=== PATIENT | female | born 1940 | race Caucasian/White ===

== ENCOUNTER 2016-10-06 06:52 | Inpatient (IN) | payer MEDICARE ==
--- NOTE | 2016-09-29 16:33 | Rehab Joint Replacement Pre-Op ---
Rehab Joint Replacement Pre-Op - Pre-Op Visit Reviewed Items Scheduled for Post Op Visit: No Pre-Op Visit Comment: The patient lives in a home without stairs ( no stairs at enterance). The patient's bathroom has a shower stall with a seat and grab bars. The patient has a walker and a cane. The patient prefers to bring her own walker into the hospital. The patient has had a R TKA in the past. Kalen Hose/Garment Measurement TKR - Knee High: Yes Exercise Reviewed: Yes Stair Climbing: N/A Cane/Walker/Crutch Training: Yes Vend Equipment - Cane or Walker and OT Kit: N/A List of Venders in the Area: N/A Shower Chair Transfers: Yes Car Transfers: Yes Bed Transfers: Yes Medical History Forms Issued: N/A Functional Scale Forms Issued: N/A
[~2016-10-06 06:52] MED LIST: ACETAMINOPHEN 1000MG/100 ML PREMIX IV ONE; CEFAZOLIN 2 Gram 50 ML IVPB ONE; CELECOXIB 100 MG CAPSULE PO ONE; FAMOTIDINE 20MG TABLET PO ONE; MECLIZINE 25 MG TABLET PO ONE; METOCLOPRAMIDE 10 MG TABLET PO ONE
[2016-10-06] MEDS ORDERED: RINGERS SOLUTION,LACTATED 1,000 ML IV PRN (10:45)
[2016-10-06] MEDS ORDERED: TRAMADOL HCL 50 MG TABLET PO PRN ×2 (11:15)
[2016-10-06] MEDS ORDERED: SENNOSIDES/DOCUSATE SODIUM UD CAPSULE PO PRN (11:15)
[2016-10-06] MEDS ORDERED: METOCLOPRAMIDE HCL 10 MG/2 ML VIAL IVP PRN (11:15)
[2016-10-06] MEDS ORDERED: DIPHENHYDRAMINE HCL 25 MG CAPSULE PO PRN (11:15)
[2016-10-06] MEDS ORDERED: AL HYDROX/MAG HYDROX 30ML UD PO PRN (11:15)
[2016-10-06] MEDS ORDERED: MAGNESIUM HYDROXIDE 30 ML UDC PO PRN (11:15)
[2016-10-06] MEDS ORDERED: ONDANSETRON HCL IV 4 MG/2 ML VIAL IVP PRN (11:15)
[2016-10-06] MEDS ORDERED: ZOLPIDEM TARTRATE 5 MG TABLET PO PRN (11:15)
[2016-10-06] MEDS ORDERED: TRANEXAMIC ACID 1,000 MG in 0.9 % SODIUM CHLORIDE 100ML 100 ML IVPB ONE (13:00)
[2016-10-06] MEDS ORDERED: OXYCODONE HCL 5 MG TABLET PO PRN (13:30)
[2016-10-06] MEDS: ACETAMINOPHEN 1,000 MG/ 100 ML IV SCH ×4 (13:50→20:00)
[2016-10-06] MEDS ORDERED: BUPIVACAINE 0.25% W/EPI MPF 30ML VIAL IVP ONE (14:39)
[2016-10-06] MEDS ORDERED: BUPIVACAINE LIPOSOME 266MG/20ML VIAL IV ONE (14:39)
[2016-10-06] MEDS ORDERED: TRANEXAMIC ACID 1,000 MG/10 ML ML IV ONE (14:39)
[2016-10-06] MEDS: OXYCODONE HCL 5 MG TABLET PO PRN ×4 (14:46→23:51)
[2016-10-06] MEDS ORDERED: FENTANYL PF 100MCG/2ML VIAL IV ONE (14:55)
[2016-10-06] MEDS ORDERED: MIDAZOLAM HCL 2MG/2ML VIAL IV ONE (14:55)
[2016-10-06] MEDS ORDERED: PROPOFOL 10 MG/ML VIAL IV ONE (14:55)
[2016-10-06] MEDS ORDERED: LIDOCAINE 2% MDV (20MG/ML) 20ML VIAL IV ONE (14:55)
[2016-10-06] MEDS: HYDROMORPHONE HCL 1 MG/ML CPJ IVP PRN ×2 (15:20→16:35)
[2016-10-06] MEDS: CEFAZOLIN 2 Gram 2 GM in DEXTROSE 1 BAG IVPB SCH ×2 (16:36→23:52)
--- NOTE | 2016-10-06 17:26 | Rehab Evaluation ---
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 PMH - Neuro Hx Neurological Disorders Yes PMH - GI Hx Gastrointestinal Disorders No PMH - Hx Genitourinary Disorders No Hx Age of Menopause 52 PMH - Endocrine Hx Endocrine Disorders Yes Hx Thyroid Disease Yes: THYROID CA WITH SX INTERVENTION PMH - Musculoskeletal Hx Musculoskeletal Disorders Yes Hx Arthritis Yes: OSTEOARTHRITIS Comment: LEFT KNEE PMH - Psych Hx Psychiatric Problems Yes Hx Depression Yes PMH - Hematology/Oncology Hx Hematology/Oncology Yes Disorders Hx Cancer Yes: BREAST, THYROID Hx Chemotherapy Yes Hx Radiation Therapy Yes: 3 HIGH DOSES OF RADIOACTIVE IODINE Comment: MELANOMA LFA Premorbid Status: Detail (Prior to surgery, patient was independent with ADLs, ambulation, and solution consultant - although knee pain prior to TKA was present with physical activity.) Social History: Detail (Patient lives in single story home with no stairs to enter household. Has a shower stall with seat and standard toilet. Also owns a 2 -front wheeled walker.) Precautions: [place] - Time With Patient Total Time Spent With Patient (Min): 30 Treatment Procedures: Detail (Patient was lying in bed when pt arrived and reported significant pain. Despite pain, patient was agreeable to PT evaluation. Patient required MaxAx1 for LLE with transfer from supine to sit, but was otherwise independent. SPT performed manual muscle test of R LE; did not perform on LLE due to acuity of diagnosis and pain level. Patient transferred from sit to stand with FWW for UE support with SBAx2. Able to PWB on LLE to pivot to commode. Also able to independently don/doff bottoms without UE support. Patient required MaxAx1 to transfer LLE with sit to supine. Utilized trapeze bar with MaxAx1 to scoot up in bed. CPM was placed again and programmed at 0-60 degrees knee PROM.) Subjective Information - Subjective Information Per Patient Objective Data - Pain Pain Present: Yes Pain Scale Used: Numeric (1 - 10) (Pt did not quantitatively rate pain, but noted pain was unbearable.) - Mental Status Patient Orientation: Oriented x3 - Visual Perception Appears within normal limits for therapeutic activities - ROM Not within normal limits (L knee ROM impaired s/p TKA. ROM functional based on ability to transition from supine to sitting EOB. CPM PROM currently set to 0- 60 degrees of knee ROM.) - Strength/Tone Other (R LE strength: 4-/5 hip flexion, 5/5 knee flexion/extension, and 5/5 dorsiflexion. LLE was not formally tested.) - Coordination Appears within normal limits for therapeutic activities - Bed Mobility Needs Assist (Requires MaxAx1 for LLE due to pain. Utilizes trapeze bar to assist with scooting in bed.) - Transfers Needs Assist (Requires MaxAx1 for LLE due to pain) - Balance Balance Sitting: Good Balance Standing: Good - Gait Detail (PWB with pivot transfer to commode with use of FWW with CGAx1.) - ADL's/IADL's Detail - Special Tests No Therapy Assessment - Therapy Assessment Detail (Patient is considered a low complexity evaluation based on body structure impairments including restricted L knee ROM and strength and L knee pain s/p TKA on 10/06/16. Due to the impairments, patient has the following activity and participation restrictions: ambulation, bed mobility, transfers, and ADL completion.) Problem List - Problem List Physical Therapy Problem List: Detail (1. Restricted L knee ROM 2. L knee pain 3. Reduced L knee flexion and extension strength. 4. Difficulty with ambulation , bed mobility and transfers) Occupational Therapy Problem List: Detail Goals - Goals Physical Therapy Goals: 1) Patient will ambulate 100' with FWW with SBAx1 on level surfaces. 2) Patient will be independent with all transfers and bed mobility. 3) Patient will demonstrate independence with HEP. Prognosis - Prognosis Good Plan - Plan Physical Therapy Plan: PT 2x/day until PT goals are met and/or discharge from [facility]. Treatment will include instruction of HEP, gait training, transfer training, and bed mobility.
[2016-10-06] MEDS: CLONIDINE 0.1 MG PO SCH (19:12)
[2016-10-06] MEDS: ASPIRIN 325 MG TAB ENTERIC-COATED PO SCH (21:21)
[2016-10-07] MEDS: HYDROMORPHONE HCL 1 MG/ML CPJ IVP PRN ×2 (02:06→08:51)
[2016-10-07] MEDS: ACETAMINOPHEN 1,000 MG/ 100 ML IV SCH ×2 (02:12)
[2016-10-07] MEDS ORDERED: PATIENT OWN MED: LEVOTHYROXINE 100 MCG PO SCH (06:00)
[2016-10-07] MEDS ORDERED: BUPROPION 100 MG PO SCH (06:00)
[2016-10-07] MEDS: CLONIDINE 0.1 MG PO SCH (06:09)
[2016-10-07 06:27] LABS: HEMATOCRIT 30.4 % (35.0-47.0); HEMOGLOBIN 10.3 gm/dl (11.6-16.0); MEAN CELL VOLUME 90.7 fl (81-97); MEAN CORPUSCULAR HEMOGLOBIN 30.7 pg (27-33); MEAN CORPUSCULAR HGB CONC 33.9 g/dl (32-36); MEAN PLATELET VOLUME 8.6 fl (7.4-10.4); PLATELET COUNT 222 K/uL (130-400); RED BLOOD COUNT 3.35 M/uL (3.80-5.40); WHITE BLOOD COUNT W/O DIFF 5.6 K/uL (4.2-12.2)
[2016-10-07] MEDS: CEFAZOLIN 2 Gram 2 GM in DEXTROSE 1 BAG IVPB SCH (08:06)
[2016-10-07] MEDS ORDERED: FERROUS SULFATE 325 MG TAB PO SCH (10:00)
--- NOTE | 2016-10-07 10:09 | Operative Note ---
DATE OF SURGERY: 10/06/2016. SURGEON: Jase Tejada D.O. REFERRING PHYSICIAN: Ortiz Major M.D. PREOPERATIVE DIAGNOSIS: PRIMARY OSTEOARTHRITIS OF THE LEFT KNEE. POSTOPERATIVE DIAGNOSIS: PRIMARY OSTEOARTHRITIS OF THE LEFT KNEE. OPERATIVE PROCEDURE: Left total knee arthroplasty. DESCRIPTION OF PROCEDURE: This 75-year-old female was taken to the operating room and was placed in the supine position on the operating room table. Spinal anesthesia was administered, and the left lower extremity was elevated. It was prepped with Hibiclens and draped in the usual sterile fashion. It was exsanguinated and the tourniquet was inflated to 300 mm Hg. All scrubbed personnel wore personal isolation suits. An anterior longitudinal midline incision was made followed by a medial peripatellar arthrotomy incision. An intracondylar drill hole was made for the intramedullary alignment jaron and the distal femoral cutting block was affixed at a 5-degree valgus, 9.0 mm cut on the distal femur. The wafers of bone were removed. The sizing jig was affixed; a size 60 seemed to be the appropriate size in the mediolateral direction but too small in the anterior posterior dimension. Therefore the drill holes were moved 2.0 mm anteriorly, and we resected an additional 2.0 mm off the posterior condyles to accommodate a size 60 femoral component. The four-in-one cutting block was used to make the appropriate cuts pinned in 3 degrees of external rotation. We then directed our attention to the proximal tibia. An extramedullary alignment guide was used to cut the proximal tibia referencing a 10-mm cut off the lateral tibial plateau. Once the appropriate alignment of the cutting block was assured, it was pinned. A 3-degree posterior slope cut was made on the proximal tibia. The wafer of bone was removed, and remnants of the menisci and osteophytes were removed from the posterior aspect of the joint. The wound was subsequently copiously irrigated with lactated ringers solution, and the debris was removed. The tibia was sized to a size 67, and a stem punch was used. The wound was again copiously irrigated with pulse lavage lactated ringers solution. All bony surfaces were dried. All components were cemented into place. Excess cement was removed after the insertion of each component. Initially a size 67 tibial base plate was cemented in place followed by the insertion of the tibial bearing, and subsequently the femoral component, and finally the patella. Once the components had been inserted, the knee was again taken through range of motion and found to be stable. Prior to insertion of the final components, the trial components had been inserted to determine the exact sizes necessary. The patella seemed to draw slightly laterally. Therefore, lateral release was performed through the capsule but not the synovium. This gave us just enough release to allow excellent tracking of the patella. The wound was injected with Exparel in the posteromedial and lateral corners of the joint. After the insertion of the final components, the remainder was injected into the periosteum and joint capsule of the proximal tibia and distal femur. A stab incision was made for a drain, and the arthrotomy incision was closed with #2 Vicryl. The subcutaneous tissue was closed with 0 Vicryl and the skin was stapled. Sterile dressings with a Polar Pack were applied. The patient was taken to the recovery room in satisfactory condition. GROSS PATHOLOGY: This patient demonstrated very severe medial compartment osteoarthritis, full-thickness articular cartilage loss noted of both the tibia and femoral surfaces as well as at the patellofemoral joint; with the lateral compartment being relatively spared. FINAL COMPONENTS INSERTED: A Biomet Herve VanGuard size 60 cruciate-retaining femoral component, a size 67 tibial base plate, a 10-mm anterior stabilized bearing, and a 31 x 7.8 mm patella was used. Jase Tejada D.O. Date Time Job Number: [id number] MTDD
--- NOTE | 2016-10-07 10:25 | Physical Therapy Tx Note ---
Physical Therapy Tx Note - Treatment Note Tolerated: Fair (Pt was able and willing to participate in PT, but tolerance to activity was limited by heightened pain with movement and drowsiness attributed to pain medication.) Total Time Spent With Patient: 45 Physical Therapy Tx Note: Detail (Patient was sitting in bed when PT arrived; reported 4/10 pain at rest. Patient transferred from supine to sitting EOB with MaxAx1 for LLE due to pain and stiffness. Once LLE was lowered with foot in contact with the floor, pain lessened. Pt ambulated 30' with FWW with CGAx1 progressing to SBAx1. Paused briefly after 15' due to mild dizziness symptoms- resolved with rest in standing. Therapeutic exercises included: seated knee flexion x6, quad sets x20, glute sets progressing to glute and quad set x10, ankle pumps x10, and SAQ with ModAx1. Pt used RLE to assist with seated knee flexion and achieved 63 degrees of Knee AROM.) Physical Therapy Problem List: Detail (1. Restricted L knee ROM 2. L knee pain 3. Reduced L knee flexion and extension strength. 4. Difficulty with ambulation , bed mobility and transfers) Physical Therapy Goals: 1) Patient will ambulate 100' with FWW with SBAx1 on level surfaces. 2) Patient will be independent with all transfers and bed mobility. 3) Patient will demonstrate independence with HEP. Prognosis: Good Physical Therapy Plan: PT 2x/day until PT goals are met and/or discharge from [facility]. Treatment will include instruction of HEP, gait training, transfer training, and bed mobility.
[2016-10-07] MEDS: OXYCODONE HCL/APAP 5MG/325MG TABLET PO PRN ×5 (11:10→18:19)
[2016-10-07] MEDS: ASPIRIN 325 MG TAB ENTERIC-COATED PO SCH (11:12)
[2016-10-07] MEDS ORDERED: ACETAMINOPHEN 325 MG TAB PO PRN (11:15)
--- NOTE | 2016-10-07 17:03 | Physical Therapy Tx Note ---
Physical Therapy Tx Note - Treatment Note Tolerated: Good (Pt. maintained pain rating of 3/10 from start to end of tx session. Pt. denied SOB, nausea, or fatigue during treatment session.) Total Time Spent With Patient: 40 Physical Therapy Tx Note: Detail (Pt. was I with bed mobility and transfers. Pt. performed seated heel slides, quad sets, glute sets, ankle pumps, and assisted knee flexion/extension ROM exercises without increased reports of pain. Pt. ambulated ~100 feet I with front wheeled walker. Pt. verbalized understanding of walker placement and LE placement with car transfers and bathroom transfers. Pt. was not tested for ambulation on stairs due to not having stairs in the home environment.) Physical Therapy Problem List: Detail (1. Restricted L knee ROM 2. L knee pain 3. Reduced L knee flexion and extension strength. 4. Difficulty with ambulation , bed mobility and transfers) Physical Therapy Goals: 1) Patient will ambulate 100' with FWW with SBAx1 on level surfaces. 2) Patient will be independent with all transfers and bed mobility. 3) Patient will demonstrate independence with HEP. Prognosis: Good (Pt. has met all inpatient rehab goals and is appropriate for D/ C from inpatient PT.) Physical Therapy Plan: D/C pt. from inpatient rehab.
--- NOTE | 2016-10-10 09:51 | Discharge Summary ---
DATE OF DISCHARGE: 10/07/16 DATE OF ADMISSION: 10/06/16 ADMITTING DIAGNOSIS: OSTEOARTHRITIS OF THE LEFT KNEE. DISCHARGE DIAGNOSIS: OSTEOARTHRITIS OF THE LEFT KNEE. OPERATIVE PROCEDURE: ELECTIVE LEFT TOTAL KNEE ARTHROPLASTY. DESCRIPTION: This 75-year-old female was admitted to the hospital for an elective total knee arthroplasty and tolerated the operative procedure well. The drain was removed. First postoperative day, the patient did clear physical therapy and the patient did not demonstrate any signs of complication. She had no evidence of DVT. The patient will be discharged home today with outpatient physical therapy, to wear her SHON hose during the day and remove them at night. She will take Aspirin 325 mg b.i.d. for two weeks. She was given a prescription for Percocet 5 mg/325 mg #80, one or two every six hours as necessary for pain and she will follow-up in the clinic in two weeks. Should she have any problems prior to being seen, she was instructed to call my office. PITER NARANJO D.O. Date & Time JOB NUMBER: [id number] MTDD
[2016-10-11] MEDS ORDERED: PATIENT OWN MED: LEVOTHYROXINE 100 MCG PO SCH (06:00)
== END 2016-10-07 18:13 | disposition home health service (06) | DRG 470 ==
LOC: MEDSURG 06:52
PROVIDERS: ADMIT Orthopaedic Surgery; ATTEND Orthopaedic Surgery
PROC: 0SRD0J9 Replacement of Left Knee Joint with Synthetic Substitute, Cemented, Open Approach (ICD-10-PCS; principal; 2016-10-06 09:00)
DX: M17.12 Unilateral primary osteoarthritis, left knee (principal); E03.9 Hypothyroidism, unspecified; I10 Essential (primary) hypertension
CPT/HCPCS: 85025; 94010; 94760; 97110; 97116; 97161; 97530; J1170; J7120